=== PATIENT | female | born 1945 | race Caucasian/White ===

== ENCOUNTER 2023-05-17 18:20 | Inpatient (IN) | payer MEDICARE ==
[~2023-05-17] VITALS: Ht 162.6 cm; Wt 69.2 kg
[2023-05-17 19:11] VITALS: BP 144/76; PULSE 113; RESP 20; TEMP 100.6; O2SAT 93
[2023-05-17] MEDS ORDERED: NS 1000ML 1,000 ML ONE (19:30)
[2023-05-17] MEDS ORDERED: NS 1000ML 1,000 ML IV ONE (19:30)
[2023-05-17 19:32] LABS: INFLUENZA VIRUS A ANTIGEN NEGATIVE (NEG); INFLUENZA VIRUS B ANTIGEN NEGATIVE (NEG)
[2023-05-17 19:33] LABS: BASOPHIL % 0.2 % (0.0-0.2); EOSINOPHIL # 0.1 10^3/uL (0.0-0.2); EOSINOPHIL % 0.7 % (0.0-5.0); HEMATOCRIT(ML) 35.4 % (36.0-46.0); HEMOGLOBIN 11.8 g/dL (12.0-15.0); LYMPHOCYTES # 0.91 10^3/uL1 (1.0-4.8); LYMPHOCYTES % 9.7 % (24.0-44.0); MEAN CORP HGB 30.4 pg (26-34); MEAN CORP HGB CONCENTRATION 33.3 g/dL (33-36.5); MEAN CORP VOLUME 91.2 fL (78-100); MONOCYTES # 0.9 10^3/uL (0.3-0.8); MONOCYTES % 9.1 % (5.0-12.0); NEUTROPHIL # 7.5 10^3/uL (1.8-7.7); NEUTROPHILS % 80.2 % (41.0-85.0); PLATELET COUNT 224 10^3/uL (150-400); RED BLOOD CELL 3.88 10^6/uL (4.00-5.20); RED CELL DISTRIBUTION WIDTH 13.1 % (11.5-14.5); WHITE BLOOD CELL 9.4 10^3/uL (4.5-11.0)
[2023-05-17 19:34] LABS: +ADD MANUAL DIFF(NO CHRG) NO
[2023-05-17 19:35] LABS: ALANINE AMINOTRANSFERASE(ML) 24 U/L (12-78); ALBUMIN(ML) 3.2 g/dL (3.4-5.0); ALBUMIN/GLOBULIN RATIO 0.864; ALKALINE PHOSPHATASE 98 U/L (50-136); ASPARTATE AMINO TRANSFERASE 15 U/L (0-35); CALCIUM 9.6 mg/dL (8.4-10.5); CARBON DIOXIDE 23.6 mmol/L (20.0-32); CREATININE SERUM 1.25 mg/dL (0.59-1.40); EST GFR, NON-AA 41.3 (>/=60); GLUCOSE 129 mg/dL (74-106); POTASSIUM 3.6 mmol/L (3.6-5.2); SODIUM 138 mmol/L (132-145)
[2023-05-17 19:37] LABS: INR 0.9; PROTHROMBIN PROTIME 9.3 SEC (9.7-11.6)
[2023-05-17 19:57] LABS: CREATINE KINASE 52 U/L (26-192); CREATINE KINASE MB 0.6 ng/mL (0.5-3.6)
[2023-05-17 19:59] LABS: TROPONIN I HIGH SENSITIVITY < 4 ng/L (0-50)
[2023-05-17] MEDS ORDERED: BENADRYL PO STA (20:10)
[2023-05-17] MEDS ORDERED: ATIVAN ONE (20:10)
[2023-05-17] MEDS ORDERED: ATIVAN IV STA ×2 (20:10→23:07)
[2023-05-17] MEDS ORDERED: BENADRYL ONE (20:15)
[2023-05-17] MEDS ORDERED: NS 1000ML 1,000 ML IV STA (21:22)
[2023-05-17] MEDS ORDERED: BENADRYL IV STA (23:07)
[2023-05-17] MEDS ORDERED: HALDOL IM STA (23:28)
[2023-05-17] MEDS ORDERED: HALDOL ONE (23:30)
[2023-05-17] MEDS ORDERED: ROCEPHIN 2,000 MG in NS 100ML 100 ML IV STA (23:35)
[2023-05-17] MEDS ORDERED: ROCEPHIN ONE (23:46)
[2023-05-17] MEDS ORDERED: NS 100ML 100 ML IV ONE (23:46)
[2023-05-17 23:48] LABS: BILIRUBIN,URINE NEGATIVE (NEGATIVE); LEUKOCYTE ESTERASE ,URINE NEGATIVE (NEGATIVE); NITRATE,URINE NEGATIVE (NEGATIVE); PH,URINE 5.5 (4.5-8.0); UROBILINOGEN,URINE 0.2 E.U./dL (0.2)
[2023-05-17 23:49] LABS: APPEARANCE,URINE CLEAR; UA COLOR YELLOW
[2023-05-17 23:56] LABS: UAMPH METHAMP(SCRN) NEGATIVE (co1000ng/mL); UR MDMA (ECSTASY) SCRN NEGATIVE (c/o300ng/mL); UR METHADONE SCRN NEGATIVE (c/o300ng/mL); UR OPIATE SCRN NEGATIVE (c/o300ng/mL); UR PHENCYCLIDINE (PCP) SCRN NEGATIVE (c/o 25ng/mL); UR TETRAHYDROCANNABINOL SCRN NEGATIVE (c/o 50ng/mL)
[2023-05-17] MEDS ORDERED: VANCOMYCIN 1.5 GM/300 ML BAG 300 ML IV STA (23:59)
[2023-05-18] VITALS (66 sets, daily range): BP systolic 111–164; BP diastolic 51–79; PULSE 83–110; RESP 18–27; TEMP 98.2–99.2; O2SAT 79–96
[2023-05-18] MEDS ORDERED: ZOFRAN IV PRN
[2023-05-18] MEDS ORDERED: TYLENOL PO PRN
[2023-05-18] MEDS: PRECEDEX 400 MCG/100 ML INJECT 100 ML IV PRN ×2 (02:44→15:17)
[2023-05-18] MEDS ORDERED: LISI20TA21 PO (03:13)
[2023-05-18] MEDS ORDERED: ALLO300T PO (03:13)
[2023-05-18] MEDS ORDERED: PARO20TA4 PO (03:13)
[2023-05-18] MEDS ORDERED: CARV6.252 PO (03:13)
[2023-05-18 05:20] LABS: HEMATOCRIT(ML) 34.4 % (36.0-46.0); HEMOGLOBIN 11.5 g/dL (12.0-15.0); LYMPHOCYTES # 0.47 10^3/uL1 (1.0-4.8); LYMPHOCYTES % 7.4 % (24.0-44.0); MEAN CORP HGB 30.6 pg (26-34); MEAN CORP HGB CONCENTRATION 33.4 g/dL (33-36.5); MEAN CORP VOLUME 91.5 fL (78-100); MONOCYTES # 0.5 10^3/uL (0.3-0.8); MONOCYTES % 7.4 % (5.0-12.0); NEUTROPHIL # 5.4 10^3/uL (1.8-7.7); NEUTROPHILS % 84.9 % (41.0-85.0); PLATELET COUNT 141 10^3/uL (150-400); RED BLOOD CELL 3.76 10^6/uL (4.00-5.20); WHITE BLOOD CELL 6.4 10^3/uL (4.5-11.0)
[2023-05-18 05:40] LABS: +ADD MANUAL DIFF(NO CHRG) NO
[2023-05-18 05:45] LABS: ALBUMIN(ML) 2.8 g/dL (3.4-5.0); ALBUMIN/GLOBULIN RATIO 0.756; ANION GAP 13.1; BUN/CREATININE RATIO 21.1 (10.0-20.0); CALCIUM 8.9 mg/dL (8.4-10.5); CARBON DIOXIDE 21.2 mmol/L (20.0-32); CREATININE SERUM 1.09 mg/dL (0.59-1.40); EST GFR, NON-AA 48.4 (>/=60); POTASSIUM 3.3 mmol/L (3.6-5.2)
[2023-05-18] MEDS ORDERED: ROCEPHIN ONE (08:35)
[2023-05-18] MEDS ORDERED: NS 100ML 100 ML IV ONE (08:35)
[2023-05-18] MEDS: ROCEPHIN 2,000 MG in NS 100ML 100 ML IV SCH (08:39)
[2023-05-18] MEDS: ATIVAN IM PRN (11:30)
[2023-05-18] MEDS ORDERED: VANCOMYCIN 1 GRAM/200 ML BAG 200 ML IV SCH ×3 (12:00→21:00)
[2023-05-18] MEDS: NS 1000ML 1,000 ML IV SCH ×3 (13:20→21:35)
[2023-05-18] MEDS ORDERED: VANCOMYCIN 1 GRAM/200 ML BAG 200 ML IV ONE (18:00)
[2023-05-19] VITALS (64 sets, daily range): BP systolic 85–182; BP diastolic 32–96; PULSE 62–115; RESP 16–39; TEMP 97.2–98.4; O2SAT 87–100
[2023-05-19] MEDS: PRECEDEX 400 MCG/100 ML INJECT 100 ML IV PRN (00:09)
[2023-05-19] MEDS ORDERED: VANCOMYCIN 1 GRAM/200 ML BAG 200 ML IV SCH ×3 (06:00→18:00)
[2023-05-19 06:20] LABS: BASOPHIL % 0.2 % (0.0-0.2); EOSINOPHIL % 0.2 % (0.0-5.0); HEMATOCRIT(ML) 31.4 % (36.0-46.0); HEMOGLOBIN 10.5 g/dL (12.0-15.0); LYMPHOCYTES # 0.76 10^3/uL1 (1.0-4.8); LYMPHOCYTES % 15.3 % (24.0-44.0); MEAN CORP HGB 30.6 pg (26-34); MEAN CORP HGB CONCENTRATION 33.4 g/dL (33-36.5); MEAN CORP VOLUME 91.5 fL (78-100); MONOCYTES # 0.5 10^3/uL (0.3-0.8); MONOCYTES % 10.1 % (5.0-12.0); NEUTROPHIL # 3.7 10^3/uL (1.8-7.7); PLATELET COUNT 144 10^3/uL (150-400); RED BLOOD CELL 3.43 10^6/uL (4.00-5.20)
[2023-05-19 06:29] LABS: +ADD MANUAL DIFF(NO CHRG) NO
[2023-05-19 06:38] LABS: ALBUMIN(ML) 2.5 g/dL (3.4-5.0); ALBUMIN/GLOBULIN RATIO 0.694; ANION GAP 15.8; BUN/CREATININE RATIO 25.74 (10.0-20.0); CALCIUM 9.2 mg/dL (8.4-10.5); CARBON DIOXIDE 20.9 mmol/L (20.0-32); CREATININE SERUM 1.01 mg/dL (0.59-1.40); EST GFR, NON-AA 52.9 (>/=60); POTASSIUM 3.7 mmol/L (3.6-5.2)
[2023-05-19] MEDS ORDERED: VANCOMYCIN HCL 1 GM ONE (07:27)
[2023-05-19] MEDS ORDERED: NS 250ML 250 ML ONE (09:39)
[2023-05-19] MEDS ORDERED: NS 100ML 100 ML IV ONE (09:39)
[2023-05-19] MEDS ORDERED: ROCEPHIN ONE (09:39)
[2023-05-19] MEDS: ROCEPHIN 2,000 MG in NS 100ML 100 ML IV SCH (09:41)
[2023-05-19] MEDS: NS 1000ML 1,000 ML IV SCH (19:08)
[2023-05-19] MEDS: VANCOMYCIN 1 GRAM/200 ML BAG 200 ML IV SCH (21:04)
[2023-05-19] MEDS ORDERED: CARV6.252 PO (21:28)
[2023-05-19] MEDS ORDERED: ALLO300T PO (21:28)
[2023-05-19] MEDS ORDERED: PARO20TA4 PO (21:28)
[2023-05-19] MEDS ORDERED: LISI20TA21 PO (21:28)
[2023-05-20] VITALS (7 sets, daily range): BP systolic 155–181; BP diastolic 51–82; PULSE 92–105; RESP 18–20; TEMP 97.6–98.9; O2SAT 92–97
[2023-05-20 06:35] LABS: BASOPHIL % 0.4 % (0.0-0.2); EOSINOPHIL # 0.3 10^3/uL (0.0-0.2); EOSINOPHIL % 5.4 % (0.0-5.0); HEMATOCRIT(ML) 29.2 % (36.0-46.0); HEMOGLOBIN 9.9 g/dL (12.0-15.0); LYMPHOCYTES # 1.33 10^3/uL1 (1.0-4.8); LYMPHOCYTES % 25.7 % (24.0-44.0); MEAN CORP HGB 30.5 pg (26-34); MEAN CORP HGB CONCENTRATION 33.9 g/dL (33-36.5); MEAN CORP VOLUME 89.8 fL (78-100); MONOCYTES # 0.8 10^3/uL (0.3-0.8); MONOCYTES % 14.9 % (5.0-12.0); NEUTROPHIL # 2.8 10^3/uL (1.8-7.7); NEUTROPHILS % 53.4 % (41.0-85.0); PLATELET COUNT 185 10^3/uL (150-400); RED BLOOD CELL 3.25 10^6/uL (4.00-5.20); RED CELL DISTRIBUTION WIDTH 13.1 % (11.5-14.5); WHITE BLOOD CELL 5.2 10^3/uL (4.5-11.0)
[2023-05-20 07:03] LABS: +ADD MANUAL DIFF(NO CHRG) NO; BUN/CREATININE RATIO 25.92 (10.0-20.0); CALCIUM 9.5 mg/dL (8.4-10.5); CARBON DIOXIDE 21.3 mmol/L (20.0-32); CREATININE SERUM 0.81 mg/dL (0.59-1.40); EST GFR, NON-AA 68.2 (>/=60); POTASSIUM 3.3 mmol/L (3.6-5.2)
[2023-05-20] MEDS: TYLENOL PO PRN (07:40)
[2023-05-20] MEDS ORDERED: KLOR-CON 10 PO SCH (08:00)
[2023-05-20] MEDS ORDERED: NS 100ML 100 ML IV ONE (09:19)
[2023-05-20] MEDS ORDERED: ROCEPHIN ONE (09:19)
[2023-05-20] MEDS: ROCEPHIN 2,000 MG in NS 100ML 100 ML IV SCH (09:20)
[2023-05-20] MEDS: VANCOMYCIN 1 GRAM/200 ML BAG 200 ML IV SCH ×2 (10:15→21:11)
[2023-05-20] MEDS: ATIVAN IM PRN (12:37)
[2023-05-20] MEDS ORDERED: SEROQUEL ONE (14:34)
[2023-05-20] MEDS: SEROQUEL PO SCH ×2 (14:35→20:00)
[2023-05-20] MEDS: NS 1000ML 1,000 ML IV SCH ×2 (18:40→19:09)
[2023-05-21] VITALS (8 sets, daily range): BP systolic 163–180; BP diastolic 63–89; PULSE 85–92; RESP 17–18; TEMP 98.2–99.4; O2SAT 91–97
[2023-05-21 06:16] LABS: BASOPHIL % 0.5 % (0.0-0.2); EOSINOPHIL # 0.2 10^3/uL (0.0-0.2); EOSINOPHIL % 5.2 % (0.0-5.0); HEMATOCRIT(ML) 31.5 % (36.0-46.0); HEMOGLOBIN 10.7 g/dL (12.0-15.0); LYMPHOCYTES # 1.31 10^3/uL1 (1.0-4.8); MEAN CORP HGB 30.4 pg (26-34); MEAN CORP VOLUME 89.5 fL (78-100); MONOCYTES # 0.6 10^3/uL (0.3-0.8); MONOCYTES % 13.5 % (5.0-12.0); NEUTROPHIL # 2.1 10^3/uL (1.8-7.7); NEUTROPHILS % 49.6 % (41.0-85.0); PLATELET COUNT 159 10^3/uL (150-400); RED BLOOD CELL 3.52 10^6/uL (4.00-5.20); RED CELL DISTRIBUTION WIDTH 13.1 % (11.5-14.5); WHITE BLOOD CELL 4.2 10^3/uL (4.5-11.0)
[2023-05-21 06:17] LABS: +ADD MANUAL DIFF(NO CHRG) NO
[2023-05-21 06:19] LABS: ANION GAP 12.7; BUN/CREATININE RATIO 19.71 (10.0-20.0); CALCIUM 9.3 mg/dL (8.4-10.5); CARBON DIOXIDE 24.5 mmol/L (20.0-32); CREATININE SERUM 0.71 mg/dL (0.59-1.40); EST GFR, NON-AA 79.4 (>/=60); POTASSIUM 3.2 mmol/L (3.6-5.2)
[2023-05-21] MEDS: NS 1000ML 1,000 ML IV SCH ×2 (08:00→21:28)
[2023-05-21] MEDS: ROCEPHIN 2,000 MG in NS 100ML 100 ML IV SCH (09:00)
[2023-05-21] MEDS: VANCOMYCIN 1 GRAM/200 ML BAG 200 ML IV SCH ×2 (09:30→21:28)
[2023-05-21] MEDS ORDERED: ROCEPHIN ONE (09:31)
[2023-05-21] MEDS: SEROQUEL PO SCH (21:28)
[2023-05-22 02:19] VITALS: BP 169/77; PULSE 96; RESP 18; TEMP 99.8; O2SAT 97
[2023-05-22 04:49] VITALS: BP 166/76; PULSE 98; RESP 18; TEMP 98.6; O2SAT 94
[2023-05-22] MEDS: TYLENOL PO PRN (05:16)
[2023-05-22 06:57] LABS: BASOPHIL % 0.3 % (0.0-0.2); EOSINOPHIL # 0.2 10^3/uL (0.0-0.2); EOSINOPHIL % 3.1 % (0.0-5.0); HEMATOCRIT(ML) 32.2 % (36.0-46.0); HEMOGLOBIN 10.9 g/dL (12.0-15.0); IG % 0.4 % (0.00-0.50); LYMPHOCYTES # 1.83 10^3/uL1 (1.0-4.8); LYMPHOCYTES % 26.6 % (24.0-44.0); MEAN CORP HGB 30.3 pg (26-34); MEAN CORP HGB CONCENTRATION 33.9 g/dL (33-36.5); MEAN CORP VOLUME 89.4 fL (78-100); MONOCYTES # 1.1 10^3/uL (0.3-0.8); MONOCYTES % 16.3 % (5.0-12.0); NEUTROPHIL # 3.7 10^3/uL (1.8-7.7); NEUTROPHILS % 53.3 % (41.0-85.0); RED BLOOD CELL 3.6 10^6/uL (4.00-5.20); RED CELL DISTRIBUTION WIDTH 12.7 % (11.5-14.5); WHITE BLOOD CELL 6.9 10^3/uL (4.5-11.0)
[2023-05-22 07:14] LABS: ALBUMIN(ML) 2.4 g/dL (3.4-5.0); ALBUMIN/GLOBULIN RATIO 0.648; ANION GAP 13.8; BUN/CREATININE RATIO 14.28 (10.0-20.0); CALCIUM 9.1 mg/dL (8.4-10.5); CARBON DIOXIDE 22.7 mmol/L (20.0-32); CREATININE SERUM 0.91 mg/dL (0.59-1.40); EST GFR, NON-AA 59.6 (>/=60); POTASSIUM 3.5 mmol/L (3.6-5.2)
[2023-05-22 08:27] VITALS: BP 173/89; PULSE 107; RESP 20; TEMP 97.8; O2SAT 96
[2023-05-22] MEDS: ROCEPHIN 2,000 MG in NS 100ML 100 ML IV SCH (08:40)
[2023-05-22] MEDS: COREG PO SCH ×2 (08:54→10:40)
[2023-05-22] MEDS: ZESTRIL PO SCH ×2 (08:54→10:40)
[2023-05-22] MEDS: PAXIL 20MG PO SCH ×2 (08:54→10:40)
[2023-05-22] MEDS: VANCOMYCIN 1 GRAM/200 ML BAG 200 ML IV SCH (09:00)
[2023-05-22] MEDS ORDERED: ZYLOPRIM PO SCH (09:00)
[2023-05-22 10:19] VITALS: PULSE 104; RESP 17; O2SAT 96
[2023-05-22] MEDS ORDERED: ZOFRAN ODT SL PRN (12:00)
[2023-05-22] MEDS ORDERED: LIDOCAINE 1% VIAL ONE (12:56)
[2023-05-22] MEDS ORDERED: ROCEPHIN IM ONE (13:00)
[2023-05-22] MEDS: ATIVAN IM PRN (17:28)
[2023-05-22] MEDS ORDERED: ZYLOPRIM ONE (19:50)
[2023-05-22] MEDS ORDERED: ZYVOX PO ONE (19:50)
[2023-05-22] MEDS: ZYLOPRIM PO SCH (20:00)
[2023-05-22] MEDS: ZYVOX PO SCH (20:00)
[2023-05-22] MEDS: SEROQUEL PO SCH (20:00)
[2023-05-22 21:39] VITALS: PULSE 104; RESP 17; O2SAT 96
[2023-05-23] VITALS (7 sets, daily range): BP systolic 110–178; BP diastolic 57–80; PULSE 18–96; RESP 16–18; TEMP 97.7–100.5; O2SAT 90–95
[2023-05-23 07:45] LABS: BASOPHIL % 0.4 % (0.0-0.2); EOSINOPHIL # 0.3 10^3/uL (0.0-0.2); EOSINOPHIL % 3.3 % (0.0-5.0); HEMATOCRIT(ML) 29.2 % (36.0-46.0); LYMPHOCYTES # 1.52 10^3/uL1 (1.0-4.8); LYMPHOCYTES % 19.2 % (24.0-44.0); MEAN CORP HGB 30.6 pg (26-34); MEAN CORP HGB CONCENTRATION 34.2 g/dL (33-36.5); MEAN CORP VOLUME 89.3 fL (78-100); MONOCYTES # 0.9 10^3/uL (0.3-0.8); MONOCYTES % 10.9 % (5.0-12.0); NEUTROPHIL # 5.2 10^3/uL (1.8-7.7); NEUTROPHILS % 65.7 % (41.0-85.0); PLATELET COUNT 165 10^3/uL (150-400); RED BLOOD CELL 3.27 10^6/uL (4.00-5.20); WHITE BLOOD CELL 7.9 10^3/uL (4.5-11.0)
[2023-05-23 07:59] LABS: +ADD MANUAL DIFF(NO CHRG) NO
[2023-05-23 08:07] LABS: ALBUMIN(ML) 2.3 g/dL (3.4-5.0); ALBUMIN/GLOBULIN RATIO 0.676; ANION GAP 16.8; BUN/CREATININE RATIO 18.39 (10.0-20.0); CALCIUM 9.2 mg/dL (8.4-10.5); CARBON DIOXIDE 24.6 mmol/L (20.0-32); CREATININE SERUM 0.87 mg/dL (0.59-1.40); EST GFR, NON-AA 62.8 (>/=60); POTASSIUM 3.4 mmol/L (3.6-5.2)
[2023-05-23] MEDS: ZYVOX PO SCH ×2 (09:32→21:09)
[2023-05-23] MEDS: ZYLOPRIM PO SCH (09:32)
[2023-05-23] MEDS: ZESTRIL PO SCH (09:32)
[2023-05-23] MEDS: PAXIL 20MG PO SCH (09:32)
[2023-05-23] MEDS: COREG PO SCH (09:33)
[2023-05-23] MEDS: TYLENOL PO PRN (18:34)
[2023-05-23] MEDS: SEROQUEL PO SCH (21:09)
[2023-05-23] MEDS: KLOR-CON 10 PO SCH (21:10)
[2023-05-24] VITALS: BP 130/69; PULSE 89; RESP 17; TEMP 98.1; O2SAT 95
[2023-05-24] MEDS: TYLENOL PO PRN ×2 (03:14→11:19)
[2023-05-24 04:00] VITALS: BP 151/79; PULSE 85; RESP 19; TEMP 98.8; O2SAT 94
[2023-05-24 07:35] LABS: BASOPHIL % 0.2 % (0.0-0.2); EOSINOPHIL % 0.2 % (0.0-5.0); HEMATOCRIT(ML) 32.5 % (36.0-46.0); HEMOGLOBIN 11.1 g/dL (12.0-15.0); LYMPHOCYTES # 1.13 10^3/uL1 (1.0-4.8); MEAN CORP HGB 30.4 pg (26-34); MEAN CORP HGB CONCENTRATION 34.2 g/dL (33-36.5); MONOCYTES # 1.1 10^3/uL (0.3-0.8); NEUTROPHIL # 5.7 10^3/uL (1.8-7.7); NEUTROPHILS % 70.7 % (41.0-85.0); PLATELET COUNT 186 10^3/uL (150-400); RED BLOOD CELL 3.65 10^6/uL (4.00-5.20); RED CELL DISTRIBUTION WIDTH 12.8 % (11.5-14.5); WHITE BLOOD CELL 8.1 10^3/uL (4.5-11.0)
[2023-05-24 07:43] LABS: +ADD MANUAL DIFF(NO CHRG) NO
[2023-05-24 07:53] LABS: ANION GAP 13.4; BUN/CREATININE RATIO 19.44 (10.0-20.0); CALCIUM 9.6 mg/dL (8.4-10.5); CARBON DIOXIDE 25.1 mmol/L (20.0-32); CREATININE SERUM 1.08 mg/dL (0.59-1.40); EST GFR, NON-AA 48.9 (>/=60); POTASSIUM 3.5 mmol/L (3.6-5.2)
[2023-05-24 09:28] VITALS: PULSE 85; RESP 19; O2SAT 93
[2023-05-24] MEDS: ZESTRIL PO SCH (11:29)
[2023-05-24] MEDS: PAXIL 20MG PO SCH (11:29)
[2023-05-24] MEDS: ZYVOX PO SCH ×2 (11:29→20:15)
[2023-05-24] MEDS: COREG PO SCH (11:29)
[2023-05-24] MEDS: ZYLOPRIM PO SCH (11:29)
[2023-05-24] MEDS: ATIVAN IM PRN ×2 (11:30→22:13)
[2023-05-24] MEDS ORDERED: MAGNESIUM SULFATE 50 ML IV ONE (11:30)
[2023-05-24] MEDS: KLOR-CON 10 PO SCH (11:30)
[2023-05-24] MEDS ORDERED: TORADOL IV PRN (11:30)
[2023-05-24] MEDS: ROBAXIN PO SCH ×2 (11:32→20:15)
[2023-05-24 12:00] VITALS: BP 126/68; PULSE 84; RESP 17; TEMP 99.2; O2SAT 95
[2023-05-24] MEDS ORDERED: KLOR-CON 10 PO ONE (15:00)
[2023-05-24 16:00] VITALS: BP 154/74; PULSE 84; RESP 18; TEMP 99.4; O2SAT 95
[2023-05-24 20:00] VITALS: BP 168/84; PULSE 81; RESP 18; TEMP 98.1; O2SAT 95
[2023-05-24] MEDS: SEROQUEL PO SCH (20:15)
[2023-05-24] MEDS: MAGNESIUM OXIDE PO SCH (20:15)
[2023-05-24] MEDS: TORADOL IM PRN (22:14)
[2023-05-25] VITALS: BP 153/72; PULSE 88; RESP 18; TEMP 98.4; O2SAT 94
[2023-05-25 04:00] VITALS: BP 156/78; PULSE 84; RESP 18; TEMP 98; O2SAT 93
[2023-05-25 08:00] VITALS: BP 162/80; PULSE 86; RESP 18; TEMP 89.1; O2SAT 93
[2023-05-25] MEDS: ROBAXIN PO SCH ×2 (09:22→20:59)
[2023-05-25] MEDS: COREG PO SCH (09:22)
[2023-05-25] MEDS: MAGNESIUM OXIDE PO SCH ×2 (09:22→20:59)
[2023-05-25] MEDS: ZYLOPRIM PO SCH (09:22)
[2023-05-25] MEDS: PAXIL 20MG PO SCH (09:23)
[2023-05-25] MEDS: ZYVOX PO SCH ×2 (09:23→20:59)
[2023-05-25] MEDS: ZESTRIL PO SCH (09:23)
[2023-05-25] MEDS: KLOR-CON 10 PO SCH (09:23)
[2023-05-25 12:05] VITALS: BP 133/90; PULSE 80; RESP 18; TEMP 97.4; O2SAT 94
[2023-05-25 16:18] VITALS: BP 145/62; PULSE 80; RESP 18; TEMP 97.6; O2SAT 94
[2023-05-25] MEDS ORDERED: VALIUM PO SCH (16:30)
[2023-05-25 20:13] VITALS: BP 167/81; PULSE 72; RESP 18; TEMP 98.3; O2SAT 95
[2023-05-25] MEDS ORDERED: VALIUM ONE (20:58)
[2023-05-25] MEDS: TYLENOL PO PRN (23:55)
[2023-05-26] MEDS: TORADOL IM PRN (03:29)
[2023-05-26 04:46] VITALS: BP 134/81; PULSE 72; RESP 18; TEMP 98.3; O2SAT 95
[2023-05-26 06:34] LABS: ANION GAP 10.8; BUN/CREATININE RATIO 24.29 (10.0-20.0); CALCIUM 9.7 mg/dL (8.4-10.5); CARBON DIOXIDE 27.3 mmol/L (20.0-32); CREATININE SERUM 1.07 mg/dL (0.59-1.40); EST GFR, NON-AA 49.5 (>/=60); POTASSIUM 4.1 mmol/L (3.6-5.2)
[2023-05-26 08:29] VITALS: BP 173/67; PULSE 75; RESP 18; TEMP 97.7; O2SAT 95
[2023-05-26] MEDS: PAXIL 20MG PO SCH (08:52)
[2023-05-26] MEDS: ZESTRIL PO SCH (08:52)
[2023-05-26] MEDS: COREG PO SCH (08:52)
[2023-05-26] MEDS: KLOR-CON 10 PO SCH (08:52)
[2023-05-26] MEDS: ZYLOPRIM PO SCH (08:52)
[2023-05-26] MEDS: ROBAXIN PO SCH (08:52)
[2023-05-26] MEDS: ZYVOX PO SCH (08:52)
[2023-05-26] MEDS: MAGNESIUM OXIDE PO SCH (08:52)
[2023-05-26] MEDS ORDERED: DOXY100C5 PO (10:21)
[2023-05-26 12:23] VITALS: BP 123/49; PULSE 76; RESP 18; TEMP 98.5; O2SAT 95
[2023-05-26] MEDS ORDERED: TYLENOL PO PRN (13:30)
[2023-05-26 16:05] VITALS: BP 123/49; PULSE 76; RESP 18; TEMP 98.5; O2SAT 95
[2023-05-26] MEDS ORDERED: RISPERDAL PO SCH (21:00)
== END 2023-05-26 15:38 | DRG 871 ==
LOC: ER 18:20 → ICU 23:52 → MS 05-19 17:30
PROVIDERS: ADMIT Internal Medicine; ATTEND Internal Medicine
DX: A41.9 Sepsis, unspecified organism (principal); G93.41 Metabolic encephalopathy; G93.40 Encephalopathy, unspecified; E86.0 Dehydration; M10.9 Gout, unspecified; Z20.822 Contact with and (suspected) exposure to COVID-19; I10 Essential (primary) hypertension; F41.9 Anxiety disorder, unspecified; E83.42 Hypomagnesemia; E87.6 Hypokalemia; F32.A Depression, unspecified; M54.2 Cervicalgia; Z88.2 Allergy status to sulfonamides; Z79.899 Other long term (current) drug therapy
CPT/HCPCS: 36415; 70450; 71045; 71275; 80048; 80053; 80202; 80307; 81001; 82550; 82553; 82948; 83605; 83735; 83880; 84145; 84439; 84443; 84481; 84484; 85025; 85379; 85610; 85730; 87040; 87077; 87186; 87324; 87426; 87804; 92610; 93005; 93306; 97162; 97165; 97166; 97530; 99291; G0378; J0696; J1200; J1885; J1953; J2001; J2060; J2800; J3370; J3490; J7030; J7050; Q9965; 87230; 97110-GO; 97110-GP; 97535-GO; J1630

== ENCOUNTER → 2023-05-28 | Outpatient (CLI) | payer MEDICARE ==
[~2023-05-28] MED LIST: ALLO300T PO; CARV6.252 PO; DOXY100C5 PO; LISI20TA21 PO; PARO20TA4 PO
[2023-05-28 15:20] LABS: HEMATOCRIT(ML) 32.1 % (36.0-46.0); HEMOGLOBIN 10.6 g/dL (12.0-15.0); MEAN CORP HGB 30.1 pg (26-34); MEAN CORP VOLUME 91.2 fL (78-100); RED BLOOD CELL 3.52 10^6/uL (4.00-5.20); WHITE BLOOD CELL 7.8 10^3/uL (4.5-11.0)
[2023-05-28 16:37] LABS: ALBUMIN(ML) 2.3 g/dL (3.4-5.0); ALBUMIN/GLOBULIN RATIO 0.56; BUN/CREATININE RATIO 23.91 (10.0-20.0); CALCIUM 9.9 mg/dL (8.4-10.5); CREATININE SERUM 0.92 mg/dL (0.59-1.40); EST GFR, NON-AA 58.9 (>/=60); LDL/HDL RATIO 1.8; POTASSIUM 4.4 mmol/L (3.6-5.2)
[2023-05-28 16:43] LABS: ANION GAP 16.4
== END | disposition home or self-care (01) ==
LOC: LAB 12:03
PROVIDERS: ATTEND Family Medicine
DX: I10 Essential (primary) hypertension (principal); E86.0 Dehydration; Z79.899 Other long term (current) drug therapy
CPT/HCPCS: 36415; 80053; 80061; 82306; 84439; 85027

== ENCOUNTER → 2023-06-20 | Outpatient (CLI) | payer MEDICARE ==
[2023-06-20 07:21] LABS: BASOPHIL % 0.5 % (0.0-0.2); EOSINOPHIL # 0.3 10^3/uL (0.0-0.2); HEMATOCRIT(ML) 29.1 % (36.0-46.0); HEMOGLOBIN 9.5 g/dL (12.0-15.0); LYMPHOCYTES # 1.88 10^3/uL1 (1.0-4.8); LYMPHOCYTES % 29.5 % (24.0-44.0); MEAN CORP HGB 30.3 pg (26-34); MEAN CORP HGB CONCENTRATION 32.6 g/dL (33-36.5); MEAN CORP VOLUME 92.7 fL (78-100); MONOCYTES # 0.6 10^3/uL (0.3-0.8); MONOCYTES % 8.9 % (5.0-12.0); NEUTROPHIL # 3.6 10^3/uL (1.8-7.7); NEUTROPHILS % 55.8 % (41.0-85.0); PLATELET COUNT 261 10^3/uL (150-400); RED BLOOD CELL 3.14 10^6/uL (4.00-5.20); RED CELL DISTRIBUTION WIDTH 14.1 % (11.5-14.5); WHITE BLOOD CELL 6.4 10^3/uL (4.5-11.0)
[2023-06-20 07:22] LABS: +ADD MANUAL DIFF(NO CHRG) NO
[2023-06-20 07:36] LABS: ALBUMIN(ML) 2.1 g/dL (3.4-5.0); ALBUMIN/GLOBULIN RATIO 0.552; ANION GAP 11.1; BUN/CREATININE RATIO 18.01 (10.0-20.0); CALCIUM 9.5 mg/dL (8.4-10.5); CARBON DIOXIDE 26.7 mmol/L (20.0-32); CREATININE SERUM 1.11 mg/dL (0.59-1.40); EST GFR, NON-AA 47.4 (>/=60); POTASSIUM 3.8 mmol/L (3.6-5.2)
== END | disposition home or self-care (01) ==
LOC: NPLAB 06:49
PROVIDERS: ATTEND Family Medicine
DX: G93.40 Encephalopathy, unspecified (principal); R78.81 Bacteremia
CPT/HCPCS: 36415; 80053; 85025

== ENCOUNTER → 2023-06-27 | Outpatient (CLI) | payer MEDICARE ==
[2023-06-27 09:32] LABS: BASOPHIL % 0.4 % (0.0-0.2); EOSINOPHIL # 0.4 10^3/uL (0.0-0.2); EOSINOPHIL % 6.8 % (0.0-5.0); HEMATOCRIT(ML) 27.7 % (36.0-46.0); LYMPHOCYTES # 1.49 10^3/uL1 (1.0-4.8); LYMPHOCYTES % 27.2 % (24.0-44.0); MEAN CORP HGB 30.7 pg (26-34); MEAN CORP HGB CONCENTRATION 32.5 g/dL (33-36.5); MEAN CORP VOLUME 94.5 fL (78-100); MONOCYTES # 0.5 10^3/uL (0.3-0.8); MONOCYTES % 9.3 % (5.0-12.0); NEUTROPHIL # 3.1 10^3/uL (1.8-7.7); NEUTROPHILS % 55.9 % (41.0-85.0); PLATELET COUNT 208 10^3/uL (150-400); RED BLOOD CELL 2.93 10^6/uL (4.00-5.20); RED CELL DISTRIBUTION WIDTH 14.6 % (11.5-14.5); WHITE BLOOD CELL 5.5 10^3/uL (4.5-11.0)
[2023-06-27 09:33] LABS: +ADD MANUAL DIFF(NO CHRG) NO
[2023-06-27 09:46] LABS: ALBUMIN/GLOBULIN RATIO 0.571; ANION GAP 13.7; BUN/CREATININE RATIO 23.42 (10.0-20.0); CALCIUM 9.4 mg/dL (8.4-10.5); CREATININE SERUM 1.11 mg/dL (0.59-1.40); EST GFR, NON-AA 47.4 (>/=60); POTASSIUM 4.7 mmol/L (3.6-5.2)
== END | disposition home or self-care (01) ==
LOC: NPLAB 09:21
PROVIDERS: ATTEND Family Medicine
DX: G93.40 Encephalopathy, unspecified (principal); R78.81 Bacteremia
CPT/HCPCS: 36415; 80053; 85025